=== PATIENT | male | born 1985 | race Caucasian/White ===

== ENCOUNTER 2020-12-20 11:38 | Emergency (ER) | payer OTHER ==
[2020-12-20] MEDS ORDERED: Sodium Chloride 0.9% 1000 ML 1,000 ML IV STA ×2 (11:54→11:56)
--- NOTE | 2020-12-20 11:59 | ERPHSYRPT ---
- History of Present Illness Time Seen by Provider: 12/20/20 11:57 Source: patient, video software engineer Patient Subjective Stated Complaint: "feeling dehydrated" hx DM and spent time in sun this weekend with little water intake. now c/o legs, feet, and back cramping Triage Nursing Assessment: pt to ED c/o feeling dehydrated and muscle cramping in legs, feet, and back. hx DM and did not drink well this weekend in the sun. feeling weak and cramping today while at work. rates 1/10 pain now. Physician History: Patient is a 35-year-old white male who is an insulin-dependent diabetic who works outside is been working outside all the weekend he says is been put in about 90 hours/week he has probably not been keeping his fluids up he feels dehydrated he has cramping in both his legs and his feet. He has generalized weakness his blood sugar prior to arrival per patient was 170 Timing/Duration: today Severity: moderate Associated Symptoms: malaise, weakness Allergies/Adverse Reactions: No Known Drug Allergies Allergy (Verified 12/20/20 11:59) Home Medications: Empagliflozin [Jardiance] 10 mg PO DAILY 12/20/20 [History] Liraglutide [Victoza 2-Adan] 1.2 mg SQ DAILY 12/20/20 [History] Metformin HCl [Fortamet] 1,000 mg PO BID 12/20/20 [History] Paroxetine HCl 20 mg [Paxil 20 MG] 20 mg PO DAILY 12/20/20 [History] Simvastatin 20Mg [Zocor 20Mg] 20 mg PO DAILY 12/20/20 [History] Sitagliptin Phosphate 50 MG [Januvia 50 MG] 50 mg PO DAILY 12/20/20 [History] Hx Tetanus, Diphtheria Vaccination/Date Given: Yes Hx Influenza Vaccination/Date Given: Yes Hx Pneumococcal Vaccination/Date Given: No Immunizations Up to Date: Yes Travel Risk - International Travel Have you traveled outside of the country in past 3 weeks: No - Coronavirus Screening Are you exhibiting any of the following symptoms?: No Close contact with a COVID-19 positive Pt in past 14-21 Days: No - Vaccine Status Have you recieved a Covid-19 vaccination: No - Review of Systems Constitutional: No Fever, No Chills Eyes: No Symptoms Ears, Nose, & Throat: No Symptoms Respiratory: No Cough, No Dyspnea Cardiac: No Chest Pain, No Edema, No Syncope Abdominal/Gastrointestinal: No Abdominal Pain, No Nausea, No Vomiting, No Diarrhea Genitourinary Symptoms: No Dysuria Musculoskeletal: Arthralgias, Back Pain, Myalgias, No Neck Pain Skin: No Symptoms, No Rash Neurological: No Dizziness, No Focal Weakness, No Sensory Changes Psychological: No Symptoms Endocrine: No Symptoms All Other Systems: Reviewed and Negative - Past Medical History Pertinent Past Medical History: Yes Endocrine Medical History: Diabetes Type II - Past Surgical History Past Surgical History: Yes Musculoskeletal: Orthopedic Surgery Other Surgical History: R elbow, L shoulder - Social History Smoking Status: Never smoker Exposure to second hand smoke: No Drug Use: none Patient Lives Alone: No - Nursing Vital Signs Nursing Vital Signs: Initial Vital Signs Temperature 97.1 F 12/20/20 11:49 Pulse Rate 75 12/20/20 11:49 Respiratory Rate 18 12/20/20 11:49 Blood Pressure 128/80 12/20/20 11:49 O2 Sat by Pulse Oximetry 97 12/20/20 11:49 Pain Scale Pain Intensity 0 - Physical Exam General Appearance: mild distress, alert Eye Exam: PERRL/EOMI, eyes nml inspection Ears, Nose, Throat Exam: normal ENT inspection, TMs normal, pharynx normal, moist mucous membranes Neck Exam: normal inspection, non-tender, supple, full range of motion Respiratory Exam: normal breath sounds, lungs clear, No respiratory distress Cardiovascular Exam: regular rate/rhythm, normal heart sounds, normal peripheral pulses Gastrointestinal/Abdomen Exam: soft, normal bowel sounds, No tenderness, No mass Back Exam: normal inspection, normal range of motion, No CVA tenderness, No vertebral tenderness Extremity Exam: normal inspection, normal range of motion, pelvis stable Neurologic Exam: alert, oriented x 3, cooperative, normal mood/affect, nml cerebellar function, nml station & gait, sensation nml, No motor deficits Skin Exam: normal color, warm, dry, No rash Lymphatic Exam: No adenopathy SpO2: 97 - Course Nursing assessment & vital signs reviewed: Yes Ordered Tests: Active Orders 24 hr Category Date Time Status AMYLASE Stat Lab 12/20/20 12:04 Completed CBC W DIFF Stat Lab 12/20/20 12:04 Completed CK (IN-HOUSE) [CK-Creatinine Phosphokinase] Stat Lab 12/20/20 12:04 Completed CMP Stat Lab 12/20/20 12:04 Completed LIPASE Stat Lab 12/20/20 12:04 Completed Lactic Acid Stat Lab 12/20/20 11:54 Completed MAG [MAGNESIUM] Stat Lab 12/20/20 12:04 Completed POCT GLUCOSE Stat Lab 12/20/20 12:08 Completed UA W/RFX UR CULTURE Stat Lab 12/20/20 13:15 Ordered Medication Summary Discontinued Medications Generic Name Dose Route Start Last Admin Trade Name Robyn PRN Reason Stop Dose Admin Sodium Chloride 1,000 mls @ 999 mls/hr 12/20/20 11:54 12/20/20 12:24 Sodium Chloride 0.9% 1000 Ml IV 12/20/20 12:54 999 mls/hr .Q1H1M STA Administration Sodium Chloride 1,000 mls @ 999 mls/hr 12/20/20 11:56 Sodium Chloride 0.9% 1000 Ml IV 12/20/20 12:56 .Q1H1M STA Sodium Chloride Confirm 12/20/20 12:24 Sodium Chloride 0.9% 1000 Ml Administered 12/20/20 12:25 Dose 1,000 mls @ ud .ROUTE .STK-MED ONE Sodium Chloride Confirm 12/20/20 12:25 Sodium Chloride 0.9% 1000 Ml Administered 12/20/20 12:26 Dose 1,000 mls @ ud .ROUTE .STK-MED ONE Lab/Rad Data: Laboratory Result Diagrams 12/20/20 12:04 12/20/20 12:04 Laboratory Results 12/20/20 12/20/20 12/20/20 Range/Units 12:08 12:04 12:04 WBC (4.0-10.5) K/mm3 RBC (4.1-5.6) M/mm3 Hgb (12.5-18.0) gm/dl Hct (42-50) % MCV (78-100) fl MCH (26-32) pg MCHC (32-36) g/dl RDW (11.5-14.0) % Plt Count (150-450) K/mm3 MPV (7.5-11.0) fl Gran % (36.0-66.0) % Eos # (Auto) (0-0.5) Absolute Lymphs (auto) (1.0-4.6) Absolute Monos (auto) (0.0-1.3) Lymphocytes % (24.0-44.0) % Monocytes % (0.0-12.0) % Eosinophils % (0.00-5.0) % Basophils % (0.0-0.4) % Absolute Granulocytes (1.4-6.9) Basophils # (0-0.4) Sodium 139 (137-145) mmol/L Potassium 4.1 (3.5-5.1) mmol/L Chloride 103 (98-107) mmol/L Carbon Dioxide 24 (22-30) mmol/L Anion Gap 14.9 (5-15) MEQ/L BUN 16 (9-20) mg/dL Creatinine 0.65 L (0.66-1.25) mg/dL Estimated GFR > 60.0 ML/MIN Glucose 157 H (74-106) mg/dL POC Glucometer 164 H (74 to 106) mg/dL Lactic Acid (0.4-2.0) Calcium 9.3 (8.4-10.2) mg/dL Magnesium 1.7 (1.6-2.3) mg/dL Total Bilirubin 0.40 (0.2-1.3) mg/dL AST 28 (17-59) U/L ALT 25 (0-50) U/L Alkaline Phosphatase 50 (38-126) U/L Creatine Kinase 203 H (55-170) U/L Serum Total Protein 6.9 (6.3-8.2) g/dL Albumin 4.3 (3.5-5.0) g/dL Amylase 57 (30-110) U/L Lipase 86 (23-300) U/L 12/20/20 12/20/20 Range/Units 12:04 11:54 WBC 8.9 (4.0-10.5) K/mm3 RBC 5.41 (4.1-5.6) M/mm3 Hgb 15.4 (12.5-18.0) gm/dl Hct 44.8 (42-50) % MCV 82.8 (78-100) fl MCH 28.5 (26-32) pg MCHC 34.4 (32-36) g/dl RDW 13.8 (11.5-14.0) % Plt Count 187 (150-450) K/mm3 MPV 10.5 (7.5-11.0) fl Gran % 68.1 H (36.0-66.0) % Eos # (Auto) 0.18 (0-0.5) Absolute Lymphs (auto) 1.83 (1.0-4.6) Absolute Monos (auto) 0.80 (0.0-1.3) Lymphocytes % 20.7 L (24.0-44.0) % Monocytes % 9.0 (0.0-12.0) % Eosinophils % 2.0 (0.00-5.0) % Basophils % 0.2 (0.0-0.4) % Absolute Granulocytes 6.02 (1.4-6.9) Basophils # 0.02 (0-0.4) Sodium (137-145) mmol/L Potassium (3.5-5.1) mmol/L Chloride (98-107) mmol/L Carbon Dioxide (22-30) mmol/L Anion Gap (5-15) MEQ/L BUN (9-20) mg/dL Creatinine (0.66-1.25) mg/dL Estimated GFR ML/MIN Glucose (74-106) mg/dL POC Glucometer (74 to 106) mg/dL Lactic Acid 1.7 (0.4-2.0) Calcium (8.4-10.2) mg/dL Magnesium (1.6-2.3) mg/dL Total Bilirubin (0.2-1.3) mg/dL AST (17-59) U/L ALT (0-50) U/L Alkaline Phosphatase (38-126) U/L Creatine Kinase (55-170) U/L Serum Total Protein (6.3-8.2) g/dL Albumin (3.5-5.0) g/dL Amylase (30-110) U/L Lipase (23-300) U/L - Progress Progress: improved - Departure Departure Disposition: Home Clinical Impression: Dehydration Condition: Stable Critical Care Time: No Referrals: MIRI DIAZ [Primary Care Provider] -
[2020-12-20 12:16] LABS: Absolute Neutrophil Ct (ANC) 6.02 (1.4-6.9); BASOPHIL % 0.2 % (0.0-0.4); Basophil (Absolute #) 0.02 (0-0.4); Eosinophil (Absolute #) 0.18 (0-0.5); Hematocrit 44.8 % (42-50); Hemoglobin 15.4 gm/dl (12.5-18.0); Lymphocyte (Absolute #) 1.83 (1.0-4.6); Lymphocytes % 20.7 % (24.0-44.0); Mean Cell Volume 82.8 fl (78-100); Mean Corpuscular Hemoglobin 28.5 pg (26-32); Mean Corpuscular Hgb Concent. 34.4 g/dl (32-36); Mean Platelet Volume 10.5 fl (7.5-11.0); Neutrophil % 68.1 % (36.0-66.0); Platelet Count 187 K/mm3 (150-450); Red Blood Count 5.41 M/mm3 (4.1-5.6); Red Cell Distribution Width 13.8 % (11.5-14.0); White Blood Count 8.9 K/mm3 (4.0-10.5)
[2020-12-20 12:23] LABS: ALBUMIN 4.3 g/dL (3.5-5.0); ALKALINE PHOSPHATASE 50 U/L (38-126); AMYLASE 57 U/L (30-110); ANION GAP 14.9 MEQ/L (5-15); BLOOD UREA NITROGEN 16 mg/dL (9-20); CHLORIDE 103 mmol/L (98-107); CK-Creatinine Phosphokinase 203 U/L (55-170); Calcium 9.3 mg/dL (8.4-10.2); Carbon Dioxide 24 mmol/L (22-30); Creatinine 1 0.65 mg/dL (0.66-1.25); EST GLOMERULAR FILTRATION RATE > 60.0 ML/MIN; Glucose 157 mg/dL (74-106); LIPASE 86 U/L (23-300); Potassium 4.1 mmol/L (3.5-5.1); SGOT/AST 28 U/L (17-59); SGPT/ALT 25 U/L (0-50); SODIUM 139 mmol/L (137-145); Total Protein 6.9 g/dL (6.3-8.2)
[2020-12-20] MEDS ORDERED: Sodium Chloride 0.9% 1000 ML 0 ML ONE (12:24)
[2020-12-20] MEDS ORDERED: Sodium Chloride 0.9% 1000 ML 1,000 ML ONE (12:25)
[2020-12-20 13:29] LABS: Appearance CLEAR (CLEAR); Bilirubin NEGATIVE (NEGATIVE); Blood NEGATIVE Ery/ul (0-5); Glucose >=500 mg/dL (NEGATIVE); Ketones NEGATIVE (NEGATIVE); Leukocyte Esterase NEGATIVE (NEGATIVE); Nitrite NEGATIVE (NEGATIVE); Protein,Urine Dip NEGATIVE (Negative); Specific Gravity 1.027 (1.005-1.025); Urobilinogen NEGATIVE mg/dL (0-1)
[2020-12-20 13:41] VITALS: BP 114/79; PULSE 76; O2SAT 98
== END 2020-12-20 13:45 | disposition home or self-care (01) ==
LOC: ED 11:38
DX: E86.0 Dehydration (principal)
CPT/HCPCS: 36000; 36415; 80053; 81001; 82150; 82550; 82947; 83605; 83690; 83735; 85025; 96360; 99284